=== PATIENT | male | born 2000 | race Caucasian/White ===

== ENCOUNTER 2021-08-04 12:53 | Emergency (ER) | payer BC, SELFPAY ==
[2021-08-04 13:04] VITALS: BP 133/77; PULSE 73; RESP 16; TEMP 36.3; O2SAT 100
--- NOTE | 2021-08-04 13:10 | ED.UPPEXIN ---
HPI - Extremity Injury (Upper) General Chief Complaint: Extremity Injury, Upper Stated Complaint: Right hand pain Time Seen by Provider: 08/04/21 13:03 Source: patient Mode of arrival: ambulatory Limitations: no limitations History of Present Illness HPI narrative: 20-year-old male presented for complaint of right wrist pain after injury last night. He states he reached his arm into his car and struck the hand on the gearshift which caused him to hyperextend his hand with the palm towards the forearm. Endorses numbness and tingling after the injury. States pain is 1 out of 10 at this time but worse with any movements. Denies bruising or swelling. Has not taken anything for pain. Right hand dominant. Endorses history of broken right hand. Related Data Home Medications Medication Instructions Recorded Confirmed No Home Medications 08/04/21 08/04/21 Allergies Allergy/AdvReac Type Severity Reaction Status Date / Time No Known Allergies Allergy Verified 08/04/21 13:02 Review of Systems Review of Systems: CONSTITUTIONAL: Denies body aches, fever, chills EYES: Denies visual changes ENT: Denies rhinorrhea, congestion CARDIOVASCULAR: Denies chest pain, palpitations, or edema. RESPIRATORY: Denies cough or dyspnea. GASTROINTESTINAL: Denies abdominal pain, nausea, vomiting, or diarrhea. SKIN: Denies rash, itching, or wounds. MUSCULOSKELETAL: Right wrist pain NEUROLOGIC: Denies headache, numbness, tingling, or weakness. PSYCH: Denies depression or anxiety. All systems reviewed & are unremarkable except as noted in HPI and below PMFSH Comments At time of signature, I have reviewed and agree with nursing past medical, surgical, social and family history unless otherwise noted. Please see nursing chart for further information. There is no relevant family history pertinent to the presenting complaint Exam Narrative: GENERAL: Well-appearing, well-nourished, and in no acute distress. HEAD: Normocephalic, atraumatic. EYES: PERRLA, conjunctivae clear NECK: Supple. CHEST: Speaks in full sentences. No respiratory distress. HEART: Regular rate and rhythm. Normal and equal peripheral pulses. EXTREMITIES: Right wrist has normal strength and sensation, normal range of motion but endorses pain with movement. No edema or ecchymosis, No point tenderness. No open wounds, no skin tenting, no obvious deformity; alignment normal, radial pulse palpable and equal bilaterally, skin warm, dry, pink. Capillary refill less than 3 seconds. SKIN: Warm, dry, no rash. NEURO: Alert and oriented x3. PSYCH: Normal mood and affect Course Course Emergency Course: Patient is aware of diagnosis, declines imaging at this time, stating he thinks 'something is torn.' We discussed treatment plan, worsening symptoms to return or go to ER for imaging. understands and agrees to treatment plan. Anticipatory guidance given. Patient agrees to follow-up as directed and is aware of reasons to seek care at the emergency department. Portions of this record may have been created with voice recognition software Level of Care: Express Care Visit Vital Signs Vital signs: Vital Signs Temperature 97.4 F L 08/04/21 13:04 Pulse Rate 73 08/04/21 13:04 Respiratory Rate 16 08/04/21 13:04 Blood Pressure 133/77 08/04/21 13:04 Pulse Oximetry 100 08/04/21 13:04 Temperature 97.4 F L 08/04/21 13:04 Pulse Rate 73 08/04/21 13:04 Respiratory Rate 16 08/04/21 13:04 Blood Pressure 133/77 08/04/21 13:04 Pulse Oximetry 100 08/04/21 13:04 Reviewed MDM - Extremity Injury (Upper) MDM Narrative Medical decision making narrative: Patient's injury and pain appear to be of musculoskeletal nature. No concerns for compartment syndrome. No concern for tendon or nerve injury. Patient is treatable on an outpatient basis. Differential Diagnosis Differential diagnosis: Likely sprain and strain of wrist, fracture of wrist and fracture of hand Discharge
== END 2021-08-04 13:19 | disposition home or self-care (01) ==
PROVIDERS: Emergency Provider Nurse Practitioner Family
DX: M25.531 Pain in right wrist (principal)
CPT/HCPCS: 99212; G0463

== ENCOUNTER 2022-02-19 16:41 | Emergency (ER) | payer BC, SELFPAY ==
[2022-02-19 16:49] VITALS: BP 122/78; PULSE 60; RESP 16; TEMP 36.2; O2SAT 97
--- NOTE | 2022-02-19 17:29 | ED.URI ---
HPI - URI/Sore Throat General Chief Complaint: Upper Respiratory Infection Stated Complaint: CONGESTION/DRAINAGE/SORE THROAT/FEVER/COUGH Time Seen by Provider: 02/19/22 17:29 Source: patient and RN notes reviewed Mode of arrival: ambulatory Limitations: no limitations History of Present Illness HPI Narrative: 21-year-old male presents concern for 4-day history of nasal drainage, nasal congestion, sore throat, cough, headache, body aches. He reports symptoms started on and Friday. He denies taking any medications for his symptoms. He denies any known sick contacts. He denies shortness of breath. MD elicited complaint: cough and sore throat Related Data Allergies Allergy/AdvReac Type Severity Reaction Status Date / Time No Known Allergies Allergy Verified 08/04/21 13:02 Review of Systems Review of Systems: CONSTITUTIONAL: Reports malaise. Denies chills, sweats, or fever. EYES: Denies visual changes, redness, or discharge. ENT: Reports rhinorrhea, congestion, and sore throat. Denies sinus pain, otalgia CARDIOVASCULAR: Denies chest pain, palpitations, or edema. RESPIRATORY: Reports cough. Denies dyspnea. GASTROINTESTINAL: Denies abdominal pain, nausea, vomiting, diarrhea SKIN: Denies rash or itching. MUSCULOSKELETAL: Reports myalgia. NEUROLOGIC: Reports headache. All systems reviewed & are unremarkable except as noted in HPI and below PMFSH Comments At time of signature, agree with nursing past medical, surgical, social and family history. There is no relevant family history pertinent to the presenting complaint Exam Narrative: GENERAL: Well-appearing, well-nourished, and in no acute distress. HEAD: Normocephalic EYES: PERRLA, conjunctivae clear ENT: Nares clear, clear discharge. Mucous membranes moist. TM pearly wang with sharp light reflex bilaterally; no tragal tenderness. Oropharynx not erythematous without lesions. Tonsils not enlarged and without exudate, no drooling, no hoarseness, no trismus, uvula midline. NECK: Supple. No lymphadenopathy CHEST: Clear to auscultation, breath sounds equal. No wheezing, rhonchi, rales, or stridor. No respiratory distress, speaks in full sentences. HEART: Regular rate and rhythm. No murmur heard. SKIN: Warm, dry, no rash. NEURO: Alert and oriented x3. PSYCH: Normal mood and affect Course Course Emergency Course: Patient is aware of diagnosis, understands and agrees to treatment plan. Anticipatory guidance given. Patient agrees to follow-up as directed and is aware of reasons to seek care at the emergency department. Portions of this record may have been created with voice recognition software Level of Care: Express Care Visit Vital Signs Vital signs: Vital Signs Temperature 97.2 F L 02/19/22 16:49 Pulse Rate 60 02/19/22 16:49 Respiratory Rate 16 02/19/22 16:49 Blood Pressure 122/78 02/19/22 16:49 Pulse Oximetry 97 02/19/22 16:49 Temperature 97.2 F L 02/19/22 16:49 Pulse Rate 60 02/19/22 16:49 Respiratory Rate 16 02/19/22 16:49 Blood Pressure 122/78 02/19/22 16:49 Pulse Oximetry 97 02/19/22 16:49 Reviewed. MDM - URI/Sore Throat MDM Narrative Medical decision making narrative: Differential diagnosis considered: Johnson virus, strep pharyngitis, allergic rhinitis, upper respiratory tract infection, sinusitis, rhinosinusitis, nasopharyngitis. viral pharyngitis, otitis media, otitis externa, pneumonia, bronchitis, viral cough syndrome, viral syndrome, and influenza. Exam findings show no acute concerns or changes; patient is non-toxic appearing and is in no distress. Patient is appropriate for outpatient treatment and follow-up. Lab Data Attestation: I reviewed the patient's lab results. Labs: Influenza A Screen Positive Reference Range: Negative Influenza B Screen Negative Reference Range: Negative
== END 2022-02-19 17:43 | disposition home or self-care (01) ==
PROVIDERS: Emergency Provider Nurse Practitioner
DX: J10.1 Influenza due to other identified influenza virus with other respiratory manifestations (principal); Z20.9 Contact with and (suspected) exposure to unspecified communicable disease
CPT/HCPCS: 87426; 87804; 99213; C9803; G0463

== ENCOUNTER 2022-03-12 19:35 | Emergency (ER) | payer BC, SELFPAY ==
--- NOTE | ~2022-03-12 | US_ITS ---
EXAMINATION: US scrotum doppler DATE: 03/12/2022 22:14 INDICATION: Right testicular pain TECHNIQUE: Testicular sonogram utilizing grayscale and Doppler COMPARISON: None. FINDINGS: The right testis measures 4.9 x 3.5 x 3.0 cm. The left testis measures 5.2 x 2.7 x 2.5 cm. Symmetric normal grayscale appearance to both testes. There is normal vascular flow to both testes. The right e pididymis is normal with normal vascular flow. The left epididymis is normal with normal vascular katharina w. There is no varicocele or hydrocele. IMPRESSION: 1. Normal scrotal ultrasound. Reviewed, dictated and finalized at location A.
[2022-03-12 19:42] VITALS: BP 121/70; PULSE 90; RESP 18; TEMP 36.6; O2SAT 99
--- NOTE | 2022-03-12 19:59 | ED.GENADULT ---
HPI - General Adult General Chief complaint: Urogenital-Male Stated complaint: testicular pain Time Seen by Provider: 03/12/22 19:47 History of Present Illness HPI narrative: 21-year-old male presented to the emergency department for evaluation of right testicular soreness. Patient states symptoms started approximately 1 week ago and feel that his symptoms have continued to worsen today. Patient describes it as an ache that does radiate up into his groin. Patient denies any associated nausea or vomiting. Patient denies any history of kidney stone. Patient denies any known injury. Patient denies any hematuria. Related Data Allergies Allergy/AdvReac Type Severity Reaction Status Date / Time No Known Allergies Allergy Verified 03/12/22 20:07 Review of Systems Review of Systems: CONSTITUTIONAL: Denies fever, chills, or sweats. EYES: Denies visual changes, redness, or discharge. ENT: Denies rhinorrhea, congestion, sore throat, or otalgia. CARDIOVASCULAR: Denies chest pain, palpitations, or edema. RESPIRATORY: Denies cough or dyspnea. GASTROINTESTINAL: Denies abdominal pain, nausea, vomiting, or diarrhea. GENITOURINARY: See HPI SKIN: Denies rash or itching. MUSCULOSKELETAL: Denies back pain, joint pain, or myalgia. NEUROLOGIC: Denies headache, numbness, or weakness. Exam Narrative: APPEARANCE: Well appearing, no pain, no distress, well-nourished. HEAD: normocephalic, atraumatic. EYES: PERRLA/EOMI, conjunctivae clear. NOSE: Normal no drainage NECK: Supple. No adenopathy, no masses. RESPIRATORY: Airway patent, respirations nonlabored. Clear to auscultation bilaterally, no rales, rhonchi, wheezing. CARDIOVASCULAR: Regular rate and rhythm without murmurs rubs or gallops. ABDOMINAL: Soft, nontender, nondistended, normal bowel sounds. Right testicular soreness. No scrotal edema, scrotal erythema or testicular swelling. MUSCULOSKELETAL: Moves all extremities. Strength/ROM intact, No edema, No calf tenderness. NEURO: Alert. Cranial nerves II through XII intact. Grossly intact SKIN: Warm, dry. Normal Color Course Vital Signs Vital signs: Vital Signs Temperature 97.9 F 03/12/22 19:42 Pulse Rate 90 03/12/22 19:42 Respiratory Rate 18 03/12/22 19:42 Blood Pressure 121/70 03/12/22 19:42 Pulse Oximetry 99 03/12/22 19:42 Oxygen Delivery Room Air 03/12/22 19:42 Temperature 97.9 F 03/12/22 19:42 Pulse Rate 90 03/12/22 19:42 Respiratory Rate 18 03/12/22 19:42 Blood Pressure 121/70 03/12/22 19:42 Pulse Oximetry 99 03/12/22 19:42 Oxygen Delivery Room Air 03/12/22 19:42 Medical Decision Making Vital Signs Vital Signs: Vital Signs Temperature 97.9 F 03/12/22 19:42 Pulse Rate 90 03/12/22 19:42 Respiratory Rate 18 03/12/22 19:42 Blood Pressure 121/70 03/12/22 19:42 Pulse Oximetry 99 03/12/22 19:42 Oxygen Delivery Room Air 03/12/22 19:42 Temperature 97.9 F 03/12/22 19:42 Pulse Rate 90 03/12/22 19:42 Respiratory Rate 18 03/12/22 19:42 Blood Pressure 121/70 03/12/22 19:42 Pulse Oximetry 99 03/12/22 19:42 Oxygen Delivery Room Air 03/12/22 19:42 Lab Data Lab results reviewed: Yes I reviewed the patient's lab results. Labs: Lab Results 03/12/22 Range/Units 19:54 Urine Color Light yellow (Yellow) Urine Appearance Clear (Clear) Urine pH 7.0 (5.0-9.0) Ur Specific Majestic 1.015 (1.001-1.035) Urine Protein Negative (Negative) mg/dL Urine Glucose (UA) Negative (Negative) mg/dL Urine Ketones Negative (Negative) mg/dL Ur Blood (Man) Negative (Negative) Urine Nitrate Negative (Negative) Urine Bilirubin Negative (Negative) Urine Urobilinogen 0.2 (<2.0) mg/dL Leukocyte Esterase Rfl Negative (Negative) MUKUL/UL Urine Characteristics Clear Imaging Data Radiologist's impression: Impressions Scrotum Ultrasound 03/12/22 22:19 IMPRES
[2022-03-12 20:32] LABS: Appearance Urine Clear (Clear); Bilirubin Urine Negative (Negative); Blood Urine Negative (Negative); Color Urine Light Yellow (Yellow); Glucose Urine UA Negative (Negative); Ketones Urine Negative (Negative); Leukocyte Esterase Ur Negative LEU/UL (Negative); Nitrate Urine Negative (Negative); Protein Urine Negative (Negative); Specific Grav Ur 1.015 (1.001-1.035); Urobilinogen Urine 0.2 mg/dL (<2.0)
[2022-03-12 20:35] LABS: Add Urine Microscopic? NO
== END 2022-03-12 22:56 | disposition home or self-care (01) ==
PROVIDERS: Emergency Provider Emergency Medicine
DX: N50.811 Right testicular pain (principal); R10.31 Right lower quadrant pain
CPT/HCPCS: 76870; 81003; 93976; 99284